=== PATIENT | female | born 1970 | race Caucasian/White ===

== ENCOUNTER 2019-03-27 07:42 | Emergency (ER) | payer OTHER ==
[~2019-03-27] VITALS: Ht 160 cm; Wt 56.7 kg
[~2019-03-27 07:42] MED LIST: ASPI325 PO; IBUP400 PO
== END 2019-03-27 10:26 | disposition home or self-care (01) ==
LOC: ER 07:42
DX: S01.81XA Laceration without foreign body of other part of head, initial encounter (principal); S00.531A Contusion of lip, initial encounter; F17.210 Nicotine dependence, cigarettes, uncomplicated; Z23 Encounter for immunization; X58.XXXA Exposure to other specified factors, initial encounter
CPT/HCPCS: 12011; 70450; 90471; 90714; 99283-25

== ENCOUNTER 2019-12-08 18:53 | Emergency (ER) | payer OTHER ==
[~2019-12-08] VITALS: Ht 160 cm; Wt 59.0 kg
[~2019-12-08 18:53] MED LIST changes: +ALBU90OI INH; +IBU600 MG PO
[2019-12-08] MEDS ORDERED: ERYT1OIN LEFTEYE (20:12)
[2019-12-08] MEDS ORDERED: Percocet 5-3251 EACH PO (20:12)
== END 2019-12-08 20:45 | disposition home or self-care (01) ==
LOC: ER 18:53
DX: T15.02XA Foreign body in cornea, left eye, initial encounter (principal); S41.132A Puncture wound without foreign body of left upper arm, initial encounter; F17.200 Nicotine dependence, unspecified, uncomplicated; Z88.5 Allergy status to narcotic agent; Z79.899 Other long term (current) drug therapy; W34.00XA Accidental discharge from unspecified firearms or gun, initial encounter
CPT/HCPCS: 65222; 99283-25; A9270

== ENCOUNTER 2019-12-12 15:38 | Emergency (ER) | payer OTHER ==
[~2019-12-12] VITALS: Ht 160 cm; Wt 56.7 kg
[~2019-12-12 15:38] MED LIST changes: +ERYT1OIN LEFTEYE; +Percocet 5-3251 EACH PO
== END 2019-12-12 15:45 | disposition home or self-care (01) ==
LOC: ER 15:38
DX: S41.132D Puncture wound without foreign body of left upper arm, subsequent encounter (principal); W34.00XD Accidental discharge from unspecified firearms or gun, subsequent encounter

== ENCOUNTER 2020-08-24 12:55 | Emergency (ER) | payer OTHER ==
[~2020-08-24] VITALS: Ht 167.6 cm; Wt 59.0 kg
[2020-08-24 13:54] LABS: BASOPHILS ABSOLUTE AUTO 0.04 K/mm3 (0.00-0.23); BASOPHILS PERCENT AUTO 0 % (0-2); EOSINOPHILS PERCENT AUTO 0 % (0-6); Hematocrit 37.6 % (33.0-51.0); Hemoglobin 12.4 g/dL (11.5-16.0); IMMATURE GRAN ABSOLUTE AUTO 0.09 K/mm3 (0.00-0.10); IMMATURE GRAN PERCENT AUTO 1 % (0-1); LYMPHOCYTES ABSOLUTE AUTO 1.27 K/mm3 (0.84-5.20); LYMPHOCYTES PERCENT AUTO 7 % (21-46); MONOCYTES ABSOLUTE AUTO 1.79 K/mm3 (0.16-1.47); MONOCYTES PERCENT AUTO 10 % (4-13); Mean Corpuscular HGB 31.4 pg (26.0-34.0); Mean Corpuscular Volume 95 fL (80-100); NEUTROPHILS PERCENT AUTO 82 % (41-73); Platelet Count 382 K/mm3 (150-400); RDW Standard Deviation 45.5 fL (35.1-46.3); Red Blood Cell Count 3.95 M/mm3 (3.80-5.20); White Blood Cell Count 17.19 K/mm3 (4.00-11.30)
[2020-08-24 14:09] LABS: International Normalized Ratio 0.99; Prothrombin Time Results 10.7 Sec (9.7-11.5)
[2020-08-24 14:14] LABS: Beta HCG, Quantitative, Serum 2 mIU/mL (0-3); Ethanol (Alcohol), Blood, Med <3 mg/dL
[2020-08-24 14:15] LABS: Alanine Aminotransfer (ALT/SGP 48 U/L (12-78); Albumin, Blood 3.8 g/dL (3.4-5.0); Albumin/Globulin Ratio 1.2 (0.8-1.8); Alk Phos 72 U/L (50-136); Anion Gap 7 mmol/L (6-16); Aspartate Aminotrans (AST/SGOT 98 U/L (12-37); Bilirubin, Total 0.7 mg/dL (0.1-1.0); Blood Urea Nitrogen 22 mg/dL (8-24); Bun/Creatinine Ratio 27.4 (12.0-20.0); CO2, Blood 24 mmol/L (21-32); Calcium, Blood 8.9 mg/dL (8.5-10.1); Chloride, Blood 110 mmol/L (98-108); Globulin, Blood 3.2 g/dL (2.2-4.0); Glomerular Filtration Rate >60 (60-); Glucose, Blood 122 mg/dL (70-99); Potassium, Blood 4.1 mmol/L (3.5-5.5); Sodium, Blood 141 mmol/L (136-145)
[2020-08-24 16:17] LABS: Source, Urine Catheter
[2020-08-24 16:20] LABS: Appearance, Urine Clear (Clear); Bilirubin, Urine Neg (Neg); Blood, Urine 1+ (Neg); Color, Urine Yellow (P-Yellow); Glucose Qualitative, Urine Neg (Neg); Ketones, Urine Neg (Neg); Leukocyte Esterase, Urine 1+ (Neg); Nitrite, Urine Pos (Neg); Protein, Urine 1+ (Neg); Urobilinogen, Urine NORM (Normal); pH, Urine 6.5 (5.0-8.0)
[2020-08-24 16:29] LABS: Bacteria Mod /hpf; Red Blood Cells, Urine 0-2 /hpf (0-2); Squamous Epithelial Cells Rare /hpf (Few); White Blood Cells, Urine 0-2 /hpf (0-5)
[2020-08-24] MEDS ORDERED: Norco 5-325 Ta1 EACH PO (16:35)
[2020-08-24] MEDS ORDERED: CEFP200 PO (16:35)
[2020-08-24 17:02] LABS: U Amphetamine Screen DETECTED; U Barbituate Screen Not Detected; U Benzodiazapine Screen Not Detected; U Buprenorphine Screen Not Detected; U Cannabinoids Screen DETECTED; U Cocaine Screen Not Detected; U Methadone Screen Not Detected; U Methamphetamine Screen DETECTED; U Opiates Screen Not Detected; U Oxycodone Screen Not Detected; U Phencyclidine Screen Not Detected; U Propoxyphene Screen Not Detected
== END 2020-08-24 19:00 | disposition home or self-care (01) ==
LOC: ER 12:55
PROVIDERS: Emergency Medicine
DX: S42.034A Nondisplaced fracture of lateral end of right clavicle, initial encounter for closed fracture (principal); S42.111A Displaced fracture of body of scapula, right shoulder, initial encounter for closed fracture; S81.011A Laceration without foreign body, right knee, initial encounter; N39.0 Urinary tract infection, site not specified; F17.200 Nicotine dependence, unspecified, uncomplicated; Z88.5 Allergy status to narcotic agent; Y09 Assault by unspecified means
CPT/HCPCS: 12002; 36415; 51701; 70450; 71045; 71260; 72125; 72170; 73030; 73080; 73560-RT; 74177; 80053; 81001; 83690; 84702; 85025; 85610; 87077; 87086; 87186; 96365-59; 99284-25; G0480; J0690; Q9967

== ENCOUNTER → 2021-11-17 | Outpatient (CLI) | payer OTHER ==
[~2021-11-17] MED LIST changes: +CEFP200 PO; +Norco 5-325 Ta1 EACH PO
[2021-11-19 08:11] LABS: CHLAMYDIA BY NAA Negative (Negative); GONOCOCCUS BY NAA Negative (Negative); TRICH VAG BY NAA Negative (Negative)
== END | disposition home or self-care (01) ==
LOC: LAB 15:39 → LAB SHORT 15:39
PROVIDERS: Chiropractor
DX: Z72.51 High risk heterosexual behavior (principal)
CPT/HCPCS: 87077; 87086; 87147; 87186; 87491; 87591; 87661

== ENCOUNTER → 2024-03-11 | Outpatient (CLI) | payer OTHER | LOC: LAB 17:59 → LAB SHORT 17:59 | DX: N39.0 Urinary tract infection, site not specified (principal) | CPT/HCPCS: 87077; 87086; 87186 ==